=== PATIENT | male | born 1960 | race Caucasian/White ===

== ENCOUNTER 2019-07-18 15:58 | Emergency (ER) | payer OTHER ==
[2019-07-18 16:32] VITALS: BP 154/81; PULSE 58; TEMP 98.5; BMI 33.3
[2019-07-18] MEDS ORDERED: ACETAMINOPHEN 325 MG TABLET (FP) PO ONE (17:33)
[2019-07-18] MEDS ORDERED: MECLIZINE HCL 25 MG TABLET (FP) PO ONE (17:33)
--- NOTE | 2019-07-18 17:33 | PDOC ---
History of Present Illness - General Chief Complaint: Injury Stated Complaint: INJURY Time Seen by Provider: 07/18/19 16:37 History Source: Patient Exam Limitations: No Limitations Past History - Travel Traveled outside of the country in the last 30 days: No Close contact w/someone who was outside of country & ill: No - Past Medical History Allergies/Adverse Reactions: Allergies Allergy/AdvReac Type Severity Reaction Status Date / Time Penicillins Allergy Verified 07/18/19 16:52 Home Medications: Ambulatory Orders Amlodipine Besylate [Norvasc -] 5 mg PO DAILY 07/18/19 Glipizide [Glipizide ER] 5 mg PO DAILY 07/18/19 Losartan Potassium [Cozaar -] 50 mg PO DAILY 07/18/19 metFORMIN HCL [Metformin HCl ER] 500 mg PO DAILY 07/18/19 CVA: No COPD: No CHF: No DVT: No Diabetes: Yes HTN: Yes - Immunization History Immunization Up to Date: Yes - Psycho Social/Smoking Cessation Hx Smoking History: Never smoked Information on smoking cessation initiated: No Hx Alcohol Use: No Drug/Substance Use Hx: No Review of Systems - Review of Systems Able to Perform ROS?: Yes Comments:: 07/18/19 19:03 CONSTITUTIONAL: Absent: fever, chills, diaphoresis, generalized weakness, malaise, loss of appetite HEENT: Absent: rhinorrhea, nasal congestion, throat pain, throat swelling, difficulty swallowing, mouth swelling, ear pain, eye pain, visual Changes CARDIOVASCULAR: Absent: chest pain, loss of consciousness, palpitations, irregular heart rate, peripheral edema RESPIRATORY: Absent: cough, shortness of breath, dyspnea with exertion, orthopnea, wheezing, stridor, hemoptysis MUSCULOSKELETAL: Absent: myalgia, arthralgia, joint swelling SKIN: Absent: rash, itching, pallor NEUROLOGIC: Present: Headache, dizziness Absent: focal weakness or paresthesias, unsteady gait, seizure, mental status changes, bladder or bowel incontinence PSYCHIATRIC: Absent: anxiety, depression, suicidal or homicidal ideation, hallucinations. Is the patient limited Trinidadian proficient: No *Physical Exam - Vital Signs Last Vital Signs Temp Pulse Resp BP Pulse Ox 98.5 F 58 L 17 154/81 99 07/18/19 16:29 07/18/19 16:29 07/18/19 16:29 07/18/19 16:29 07/18/19 16:29 - Physical Exam 07/18/19 19:04 GENERAL: Well developed, well nourished. Awake and alert. No acute distress. HEENT: Normocephalic, atraumatic. PERRLA, EOMI. No conjunctival pallor. Sclera are non- icteric. Moist mucous membranes. Oropharynx is clear. NECK: Supple. Full ROM. No JVD. Carotid pulses 2+ and symmetric, without bruits. No thyromegaly. No lymphadenopathy. MUSCULOSKELETAL Normal range of motion at all joints. No bony deformities or tenderness. No CVA tenderness. EXTREMITIES: No cyanosis. No clubbing. No edema. No calf tenderness. SKIN: Abrasion noted to the left temporal scalp with no obvious laceration. There is also a linear bruise approximately 3 cm along the temporal scalp on the left side. Warm and dry. Normal capillary refill. No rashes. No jaundice. NEUROLOGICAL: Alert, awake, appropriate. Cranial nerves 2-12 intact. No deficits to light touch and temperature in face, upper extremities and lower extremities. No motor deficits in the in face, upper extremities and lower extremities. Normoreflexic in the upper and lower extremities. Normal speech. Toes are down- going bilaterally. Gait is normal without ataxia. PSYCHIATRIC: Cooperative. Good eye contact. Appropriate mood and affect. Medical Decision Making - Medical Decision Making 07/18/19 19:04 The patient is a 59-year-old male no past medical history who presents the ER today after head injury at work. He states that he was getting cleaning supplies off a shelf when it fell and hit his head. He states that he blacked out when the shelf hit him. He states that he is now dizzy and he feels lightheaded. He is unsure if he has a cut on his head. He does not remember the date of his last tetanus shot. Denies neck pain, back pain, lightheadedness , visual changes. A/P: Concussion On exam patient with a small abrasion less than a centimeter to the left temporal scalp with a overlying linear bruise. Tetanus shot updated given the abrasion On exam patient is neurologically intact with no focal deficits. Patient does report being dizzy however CT head is negative for bleed or fractures. Likely a concussion and postconcussive syndrome. Will send meclizine home and concussion precautions. Patient to follow-up with his primary care doctor Discharge home with strict return precautions I discussed the physical exam findings, ancillary test results and final diagnoses with the patient. I answered all of the patient's questions. The patient was satisfied with the care received and felt comfortable with the discharge plan and treatment plan. The Patient agrees to follow up with the primary care physician/specialist within 24-72 hours. Return precautions were given. Discharge - Discharge Information Problems reviewed: Yes Clinical Impression/Diagnosis: Concussion Qualifiers: Encounter type: initial encounter Loss of consciousness presence/duration: with LOC of 30 min or less Qualified Code(s): S06.0X1A - Concussion with loss of consciousness of 30 minutes or less, initial encounter Condition: Stable Disposition: HOME - Admission No - Follow up/Referral Referrals: Curtis Castaneda MD [Staff Physician] - - Patient Discharge Instructions Patient Printed Discharge Instructions: DI for Concussion Additional Instructions: You were evaluated for your head injury today. Your head CT was normal. You most likely sustained a concussion. You may take Tylenol 650 mg every 6 hours as needed for pain. Please avoid close work such as reading textbooks or watching TV until your symptoms resolve. Please drink plenty of fluids You may take meclizine as directed for dizziness Follow-up with neurology if your symptoms do not improve within a week. Return to the ER for worsening headache, vomiting, increased dizziness or if you have any changes in your symptoms. Usted fue evaluado por penn lesin en la nydia hoy. Tu CT de la nydia era normal. Lo ms probable es que haya sufrido junito conmocin cerebral. Puede andre Tylenol 650 mg cada 6 horas segn sea necesario para el dolor. Evite el trabajo cercano will leer libros de texto o mirar televisin hasta que se resuelvan jin sntomas. Courtney muchos lquidos. Puede andre meclizina segn las indicaciones para mareos. Flo un seguimiento con neurologa si jin sntomas no mejoran en junito semana. Regrese a la leah de emergencias para empeorar el dolor de nydia, el vmito, el aumento de los mareos o si tiene algn cambio en jin sntomas. Print Language: GU[place] - Post Discharge Activity Work/Back to School Note: Back to Work
[2019-07-18] MEDS ORDERED: DIPHTH,PERTUSS(ACELL),TET 0.5 ML DISP.SYRIN IM ONE ×2 (17:34→18:09)
[2019-07-18] MEDS ORDERED: ACETAMINOPHEN 325 MG TABLET (FP) ONE (18:09)
[2019-07-18] MEDS ORDERED: MECLIZINE HCL 25 MG TABLET (FP) ONE (18:10)
== END 2019-07-18 19:13 | disposition home or self-care (01) ==
LOC: JERFT 15:58
PROC: 3E0234Z Introduction of Serum, Toxoid and Vaccine into Muscle, Percutaneous Approach (ICD-10-PCS; principal; 2019-07-18)
DX: S06.0X1A Concussion with loss of consciousness of 30 minutes or less, initial encounter (principal); E11.9 Type 2 diabetes mellitus without complications; I10 Essential (primary) hypertension
CPT/HCPCS: 70450-TC; 90715; 99281-25

== ENCOUNTER 2021-10-27 13:34 | Emergency (ER) | payer OTHER ==
[2021-10-27 13:45] VITALS: BP 137/77; PULSE 51; TEMP 98.6; BMI 32.3
[2021-10-27] MEDS ORDERED: morphine CARPU-JECT 4 MG/1 ML DISP.SYRIN IVPUSH ONE (14:29)
[2021-10-27] MEDS ORDERED: SODIUM CHLORIDE 0.9% 500 ML INFUS.BAG IV ONE (14:29)
[2021-10-27] MEDS ORDERED: morphine SULFATE 4 MG/ML VIAL ONE (14:55)
[2021-10-27 15:22] LABS: HEMOGLOBIN 14.9 GM/dL (11.7-16.9); MCH 30.2 pg (25.7-33.7); MCHC 34.7 g/dl (32.0-35.9); MEAN PLT VOLUME 8.6 fl (7.5-11.1); PLATELET COUNT 189 10^3/uL (134-434); RBC 4.94 M/mm3 (4.00-5.60); RDW 13.9 % (11.9-15.9); WHITE BLOOD COUNT 14.3 K/mm3 (4.0-10.0)
[2021-10-27 15:45] LABS: ALBUMIN 3.8 g/dl (3.4-5.0); BLOOD UREA NITROGEN 25.4 mg/dL (7-18)
[2021-10-27 15:48] LABS: CREATININE 1.4 mg/dL (0.55-1.3)
[2021-10-27 15:49] LABS: BILIRUBIN,TOTAL 0.9 mg/dL (0.2-1)
[2021-10-27 15:50] LABS: TOT PROT 7.3 g/dl (6.4-8.2)
[2021-10-27 15:59] LABS: ANISOCYTOSIS 2+; MACROCYTOSIS 0; OVALOCYTE 1+; TEAR DROP CELLS 1+
[2021-10-27 18:08] LABS: EPI CELLS 13 /uL (0-25.1); HYALINE CASTS 7 /uL (0-3.1); URINE APPEARANCE CLEAR; URINE BACTERIA 72 /uL (0-1359); URINE BILIRUBIN 1+ (NEGATIVE); URINE COLOR DK YELLOW; URINE GLUCOSE (UA) TRACE (NEGATIVE); URINE KETONE TRACE (NEGATIVE); URINE LEUK ESTERASE NEGATIVE (NEGATIVE); URINE NITRITE NEGATIVE (NEGATIVE); URINE PROTEIN 3+ (NEGATIVE); URINE RBC 17 /uL (0-23.9); URINE WBC 14 /uL (0-25.8)
== END 2021-10-27 17:39 | disposition home or self-care (01) ==
LOC: JER 13:34
PROC: 3E033NZ Introduction of Analgesics, Hypnotics, Sedatives into Peripheral Vein, Percutaneous Approach (ICD-10-PCS; principal; 2021-10-27)
DX: K80.51 Calculus of bile duct without cholangitis or cholecystitis with obstruction (principal)
CPT/HCPCS: 36415; 76705-TC; 80053; 81003; 85025; 87086; 99284-25